=== PATIENT | male | born 1990 ===

== ENCOUNTER 2024-12-16 23:26 | Emergency (ER) | payer OTHER ==
[~2024-12-16] VITALS: Ht 180.3 cm; Wt 79.5 kg
[2024-12-16 23:29] VITALS: BP 134/70; PULSE 80; RESP 20; TEMP 98.7; O2SAT 98
== END 2024-12-17 02:01 | disposition home or self-care (01) ==
LOC: EMS 23:26
DX: G89.29 Other chronic pain (principal); M25.532 Pain in left wrist; Z88.5 Allergy status to narcotic agent
CPT/HCPCS: 99283; Z7502